=== PATIENT | male | born 1985 | race Caucasian/White ===

== ENCOUNTER 2021-02-17 17:29 | Emergency (ER) | payer MEDICAID ==
[~2021-02-17] VITALS: Ht 167.6 cm; Wt 109.1 kg
[2021-02-17] MEDS ORDERED: LIDOCAINE 5% TRANSDERMAL PATCH TD ONE (18:30)
[2021-02-17] MEDS ORDERED: ACETAMINOPHEN 325 MG TABLET PO ONE (18:30)
[2021-02-17] MEDS ORDERED: IBUPROFEN 400 MG TABLET PO ONE (18:30)
[2021-02-17 19:18] LABS: APPEARANCE,URINE CLOUDY (CLEAR); BILIRUBIN,URINE NEGATIVE (NEGATIVE); GLUCOSE, URINE (UA) NEGATIVE (NEGATIVE); KETONES,URINE TRACE mg/dL (NEGATIVE); LEUKOCYTE ESTERASE ,URINE SMALL (NEGATIVE); NITRATE,URINE NEGATIVE (NEGATIVE); OCCULT BLOOD,URINE LARGE (NEGATIVE); PH,URINE 5.5 (5.0-8.0); PROTEIN,URINE POS 1+ (NEGATIVE); UROBILINOGEN,URINE 0.2 mg/dL (<=1.0)
[2021-02-17 19:56] LABS: BACTERIA,URINE Rare /HPF (None Seen)
[2021-02-17 19:58] LABS: YEAST,URINE Moderate /HPF (None Seen)
[2021-02-17 21:28] VITALS: BP 129/69
== END 2021-02-17 22:09 | disposition home or self-care (01) ==
LOC: EMS 17:29
DX: N13.2 Hydronephrosis with renal and ureteral calculous obstruction (principal)
CPT/HCPCS: 74176; 81001; 99284; Z7502; Z7610